=== PATIENT | female | born 1995 | race Caucasian/White ===

== ENCOUNTER → 2018-08-11 13:59 | Outpatient (CLI) | payer OTHER, SELFPAY ==
[2018-08-15 13:43] LABS: HPV Reflexed? NOT INDICATED
== END ==
PROVIDERS: Visit Provider Obstetrics & Gynecology
DX: Z12.4 Encounter for screening for malignant neoplasm of cervix (principal)
CPT/HCPCS: 88175; G0145

== ENCOUNTER → 2020-08-13 | Outpatient (CLI) | payer OTHER, SELFPAY | END | disposition home or self-care (01) | LOC: LABSPEC 16:02 | PROVIDERS: Visit Provider Obstetrics & Gynecology | DX: Z12.4 Encounter for screening for malignant neoplasm of cervix (principal) | CPT/HCPCS: 88175; G0145 ==

== ENCOUNTER 2021-11-06 16:44 | Outpatient (CLI) | payer OTHER, SELFPAY ==
[2021-11-09 00:07] LABS: Chlamydia By Nucleic Acid AMP Negative (Negative)
[2021-11-10 09:43] LABS: Gonococcus By Nucleic Acid AMP Negative (Negative)
== END 2021-11-06 23:59 | disposition home or self-care (01) ==
LOC: LABSPEC 16:45
PROVIDERS: PCP Family Medicine; Visit Provider Nurse Practitioner Women's Health
DX: Z11.3 Encounter for screening for infections with a predominantly sexual mode of transmission (principal)
CPT/HCPCS: 87491; 87591

== ENCOUNTER 2021-11-30 10:12 | Outpatient (CLI) | payer OTHER, SELFPAY ==
--- NOTE | 2021-11-30 10:18 | US_ITS ---
STUDY: ULTRASOUND OF THE FEMALE PELVIS - COMPLETE REASON FOR EXAM: Female, 26 years old. Right-sided pelvic pain for 3 weeks. LMP: 11/20/2021. TECHNIQUE: Transabdominal and Transvaginal TECHNICAL QUALITY: Adequate. COMPARISON: None. FINDINGS: The uterus is anteverted and is in a midline position. The uterus measures 8.1 x 4.8 x 3.4 cm. There is a Nabothian cyst of the cervix. The endometrium measures 4 mm in thickness, and is hyperechoic. There is no demonstrated endometrial mass. There is no demonstrated myometrial mass. I.U.D. - The patient does not have an I.U.D. The right ovary is visualized. The right ovary measures 2.9 x 3.4 x 1.3 cm. There is small cyst/prominent follicle in the right ovary measuring 1.8 cm. There is no visualized right adnexal mass or complex lesion. There is normal arterial and normal venous vascularity. The left ovary is visualized. The left ovary measures 2.8 x 2.3 x 1.2 cm. There is no left ovarian cyst or ovarian mass. There is no visualized left adnexal mass or complex lesion. There is normal arterial and normal venous vascularity. There is no fluid in the cul-de-sac. The pre void volume of the bladder was 379 ml. . US/Pelvic (Non ) IMPRESSION: 1. Nabothian cyst in the cervix. 2. No significant abnormality is seen. Electronically Signed: Ke Enciso MD at 12:20 EDT ,
--- NOTE | 2021-11-30 10:18 | US_ITS ---
STUDY: ULTRASOUND OF THE FEMALE PELVIS - COMPLETE REASON FOR EXAM: Female, 26 years old. Right-sided pelvic pain for 3 weeks. LMP: 11/20/2021. TECHNIQUE: Transabdominal and Transvaginal TECHNICAL QUALITY: Adequate. COMPARISON: None. FINDINGS: The uterus is anteverted and is in a midline position. The uterus measures 8.1 x 4.8 x 3.4 cm. There is a Nabothian cyst of the cervix. The endometrium measures 4 mm in thickness, and is hyperechoic. There is no demonstrated endometrial mass. There is no demonstrated myometrial mass. I.U.D. - The patient does not have an I.U.D. The right ovary is visualized. The right ovary measures 2.9 x 3.4 x 1.3 cm. There is small cyst/prominent follicle in the right ovary measuring 1.8 cm. There is no visualized right adnexal mass or complex lesion. There is normal arterial and normal venous vascularity. The left ovary is visualized. The left ovary measures 2.8 x 2.3 x 1.2 cm. There is no left ovarian cyst or ovarian mass. There is no visualized left adnexal mass or complex lesion. There is normal arterial and normal venous vascularity. There is no fluid in the cul-de-sac. The pre void volume of the bladder was 379 ml. . US/Transvaginal Non- IMPRESSION: 1. Nabothian cyst in the cervix. 2. No significant abnormality is seen. Electronically Signed: Ke Enciso MD at 12:20 EDT ,
== END 2021-11-30 23:59 | disposition home or self-care (01) ==
PROVIDERS: PCP Family Medicine; Referring Provider Nurse Practitioner Women's Health; Visit Provider Nurse Practitioner Women's Health
DX: R10.2 Pelvic and perineal pain (principal)
CPT/HCPCS: 76830; 76856; 93976

== ENCOUNTER → 2022-11-24 | Outpatient (CLI) | payer OTHER, SELFPAY ==
[2022-12-01 20:02] LABS: HPV Reflexed? NOT INDICATED
== END | disposition home or self-care (01) ==
PROVIDERS: PCP Family Medicine; Visit Provider Registered Nurse
DX: Z12.4 Encounter for screening for malignant neoplasm of cervix (principal)
CPT/HCPCS: 88175; G0145